=== PATIENT | female | born 2000 | race Caucasian/White ===

== ENCOUNTER 2019-02-02 03:55 | Inpatient (IN) ==
[2019-02-02] MEDS ORDERED: ONDANSETRON 4 MG/2 ML VIAL IV PRN ×2 (04:16→08:07)
[2019-02-02] MEDS ORDERED: LACTATED RINGERS 1,000 ML IV ONE (04:16)
[2019-02-02 04:36] LABS: Apearance,Urine CLOUDY (Clear); Bacteria,Urine Few /HPF (Few); Bilirubin,Urine Negative (Negative); Blood, Urine Large mg/dL (Negative); Glucose,Urine (UA) Negative (Negative); Hyaline Casts,Urine 1 /LPF (0-3); Ketones,Urine Negative (Negative); Mucus,Urine Few /LPF (Occasional); Nitrite,Urine Negative (Negative); Protein,Urine 30 MG/DL; RBC,Urine 207 /HPF (0-4); Squamous Epithelial Cell,Urine Moderate /HPF (0-10); Urine Color Yellow (Yellow); Urine Specific Gravity 1.011 (1.001-1.035); Urine Urobilinogen < 2.0 EU/DL (0.2-1.0); WBC,Urine 6 /HPF (0-6)
[2019-02-02] MEDS: BUTORPHANOL 2 MG/ML VIAL IV PRN ×2 (04:37→07:33)
[2019-02-02] MEDS ORDERED: LACTATED RINGERS 1,000 ML IV PRN (08:07)
[2019-02-02] MEDS ORDERED: hydrOXYzine HCL 25 MG/1 ML VIAL IM PRN (08:11)
[2019-02-02] MEDS ORDERED: ePHEDrine 50 MG/ML AMP IV PRN ×2 (08:11)
[2019-02-02] MEDS ORDERED: FAMOTIDINE 20 MG/2 ML VIAL IV ONE (08:11)
[2019-02-02] MEDS ORDERED: CITRIC ACID/SODIUM CITRATE 30 ML UDCUP PO ONE (08:11)
[2019-02-02] MEDS ORDERED: NALOXONE 0.4 MG/ML VIAL IV PRN (08:11)
[2019-02-02] MEDS ORDERED: PROMETHAZINE 25 MG/1 ML VIAL IM ONE (08:11)
[2019-02-02] MEDS ORDERED: ONDANSETRON 4 MG/2 ML VIAL IV ONE (08:11)
[2019-02-02] MEDS ORDERED: diphenhydrAMINE 50 MG/1 ML VIAL IV PRN ×2 (08:11)
[2019-02-02 08:29] LABS: Basophils % 0.3 % (0.0-0.8); Eosinophils % 0.2 % (0.00-10.9); Hematocrit 34.8 VOL% (35.7-47.0); Hemoglobin 11.6 GM/DL (12.0-16.0); Immature Granulocytes % 0.8 %; Immature Granulocytes Absolute 0.11 #; Mean Corpuscular HGB Conc 33.3 GM/DL (32-36); Mean Corpuscular Volume 90.6 FL (87-102); Mean Platelet Volume 12.4 FL (9.6-12.0); Monocytes % 7.2 % (1.7-12.7); Neutrophils % 77.5 % (38.7-73.9); Platelet Count 184 T/CUMM (130-400); Red Blood Count 3.84 MC/CUMM (3.8-5.5); Red Cell Distribution Width 13.2 % (9.3-17.3); White Blood Count 14.5 T/CUMM (4-12)
[2019-02-02] MEDS ORDERED: fentaNYL 2 MCG/ROPIV 0.2% EPID 100 ML EPIDURAL SCH (08:30)
[2019-02-02] MEDS ORDERED: OXYTOCIN/LR 20 UNIT/1,000 ML BAG IV SCH (08:30)
[2019-02-02] MEDS ORDERED: LACTATED RINGERS 1,000 ML IV SCH ×2 (08:30)
[2019-02-02 09:01] LABS: Albumin 2.6 G/DL (3.4-5.0); Bilirubin,Total 0.4 MG/DL (0.2-1.0); Calcium 8.8 MG/DL (8.5-10.1); Osmolality,Calculated 274.5 MOS/KG (273-304); Total Protein 6.5 G/DL (6.4-8.3)
[2019-02-02] MEDS ORDERED: miSOPROStoL 200 MCG TABLET ONE (09:46)
[2019-02-02] MEDS ORDERED: CARBOPROST TROMETHAMINE 250 MCG/ML AMP IM ONE (09:46)
[2019-02-02] MEDS ORDERED: TRANEXAMIC ACID 1,000 MG/10 ML VIAL ONE (09:46)
[2019-02-02] MEDS ORDERED: METHYLERGONOVINE 0.2 MG/1 ML AMP ONE (09:46)
[2019-02-02] MEDS: IBUPROFEN 800 MG TABLET PO PRN (23:02)
[2019-02-03 06:15] LABS: Basophils # 0.1 10*3/uL (0.0-0.2); Basophils % 0.4 % (0.0-0.8); Eosinophils # 0.2 10*3/uL (0.0-0.87); Eosinophils % 1.5 % (0.00-10.9); Hematocrit 30.7 VOL% (35.7-47.0); Hemoglobin 10.2 GM/DL (12.0-16.0); Immature Granulocytes % 0.5 %; Immature Granulocytes Absolute 0.07 #; Mean Corpuscular HGB Conc 33.2 GM/DL (32-36); Mean Corpuscular Volume 90.3 FL (87-102); Mean Platelet Volume 12.8 FL (9.6-12.0); Neutrophils % 66.6 % (38.7-73.9); Platelet Count 147 T/CUMM (130-400); Red Cell Distribution Width 13.2 % (9.3-17.3); White Blood Count 13.7 T/CUMM (4-12)
[2019-02-03] MEDS ORDERED: MAGNESIUM HYDROXIDE SUSP 30 ML UDCUP PO PRN (09:11)
[2019-02-03] MEDS: DOCUSATE SODIUM 100 MG CAPSULE PO SCH ×2 (09:41→21:58)
[2019-02-03] MEDS ORDERED: BENZOCAINE 20%/MENTHOL 0.5% SPRAY 56 GM CAN TOP PRN (11:42)
[2019-02-03] MEDS: IBUPROFEN 800 MG TABLET PO PRN ×2 (13:43→21:58)
[2019-02-04] MEDS: IBUPROFEN 800 MG TABLET PO PRN (07:29)
[2019-02-04 07:51] VITALS: BP 122/73
[2019-02-04] MEDS: DOCUSATE SODIUM 100 MG CAPSULE PO SCH (08:00)
[2019-02-04] MEDS ORDERED: NITROFURANTOIN MACRO/MONO 100 MG CAPSULE PO SCH (10:00)
== END 2019-02-04 13:45 | disposition home or self-care (01) | DRG 560 ==
LOC: N.LDOUT 03:55 → N.LD 03:57 → N.OB 14:25
PROVIDERS: ADMIT Specialist; ATTEND Specialist

== ENCOUNTER 2020-02-19 05:26 | Inpatient (IN) ==
[2020-02-19] MEDS ORDERED: ONDANSETRON 4 MG/2 ML VIAL IV PRN ×2 (05:35→11:26)
[2020-02-19] MEDS ORDERED: LACTATED RINGERS 1,000 ML IV SCH (06:00)
[2020-02-19 06:25] LABS: Basophils # 0.1 10*3/uL (0.0-0.2); Basophils % 0.7 % (0.0-0.8); Eosinophils # 0.2 10*3/uL (0.0-0.87); Eosinophils % 2.4 % (0.00-10.9); Hematocrit 31.3 VOL% (35.7-47.0); Immature Granulocytes % 0.6 %; Immature Granulocytes Absolute 0.05 #; Mean Corpuscular HGB Conc 31.9 GM/DL (32-36); Mean Corpuscular Volume 81.7 FL (87-102); Mean Platelet Volume 12.5 FL (9.6-12.0); Monocytes % 9.6 % (1.7-12.7); Neutrophils % 63.7 % (38.7-73.9); Platelet Count 163 T/CUMM (130-400); Red Blood Count 3.83 MC/CUMM (3.8-5.5); Red Cell Distribution Width 15.2 % (9.3-17.3); White Blood Count 8.8 T/CUMM (4-12)
[2020-02-19] MEDS ORDERED: OXYTOCIN/LR 20 UNIT/1,000 ML BAG IV SCH (06:30)
[2020-02-19 06:54] LABS: Albumin 2.7 G/DL (3.4-5.0); Bilirubin,Total 0.5 MG/DL (0.2-1.0); Calcium 8.9 MG/DL (8.5-10.1); Osmolality,Calculated 273.5 MOS/KG (273-304)
[2020-02-19] MEDS ORDERED: CITRIC ACID/SODIUM CITRATE 30 ML UDCUP PO ONE (08:05)
[2020-02-19] MEDS ORDERED: FAMOTIDINE 20 MG/2 ML VIAL IV ONE (08:05)
[2020-02-19] MEDS ORDERED: diphenhydrAMINE 50 MG/1 ML VIAL IV PRN ×2 (08:05)
[2020-02-19] MEDS ORDERED: ePHEDrine 50 MG/ML VIAL IV PRN (08:05)
[2020-02-19] MEDS ORDERED: hydrOXYzine HCL 25 MG/1 ML VIAL IM PRN (08:05)
[2020-02-19] MEDS ORDERED: PROMETHAZINE 25 MG/1 ML VIAL IM ONE (08:05)
[2020-02-19] MEDS ORDERED: NALOXONE 0.4 MG/ML VIAL IV PRN (08:05)
[2020-02-19] MEDS ORDERED: LACTATED RINGERS 1,000 ML IV ONE (08:05)
[2020-02-19] MEDS ORDERED: fentaNYL 2 MCG/ROPIV 0.2% EPID 100 ML EPIDURAL SCH (08:30)
[2020-02-19] MEDS ORDERED: MEPERIDINE 50 MG/1 ML VIAL IV ONE (08:41)
[2020-02-19] MEDS ORDERED: RHO(D) IMMUNE GLOBULIN 300 MCG SYRINGE IM ONE (11:26)
[2020-02-19] MEDS ORDERED: BISACODYL 10 MG SUPP RECTAL PRN (11:26)
[2020-02-19] MEDS ORDERED: ACETAMINOPHEN 325 MG TABLET PO PRN (11:26)
[2020-02-19] MEDS ORDERED: WITCH HAZEL PADS 100/JAR TOP PRN (11:26)
[2020-02-19] MEDS ORDERED: DIPH/TET/ACEL PERT BOOSTER VACCINE 0.5 ML VIAL IM ONE (11:26)
[2020-02-19] MEDS ORDERED: OXYTOCIN/LR 20 UNIT/1,000 ML BAG IV ONE (11:26)
[2020-02-19] MEDS ORDERED: BENZOCAINE 20%/MENTHOL 0.5% SPRAY 56 GM CAN TOP PRN (11:26)
[2020-02-19] MEDS ORDERED: MEASLES/MUMPS/RUBELLA VACCINE 0.5 ML VIAL SUBCUT ONE (11:26)
[2020-02-19] MEDS ORDERED: oxyCODONE/ACETAMINOPHEN 5-325 MG TABLET PO PRN (11:26)
[2020-02-19] MEDS ORDERED: LANOLIN 50% CREAM 0.3 OZ TUBE TOP PRN (11:26)
[2020-02-19] MEDS ORDERED: HYDROCORTISONE 2.5% RECTAL CREAM 30 GM TUBE TOP PRN (11:26)
[2020-02-19 11:48] LABS: Cord Arterial Blood HCO3 17.4 MMOL/L
[2020-02-19 11:51] LABS: Cord Venous Blood HCO3 20.2 MMOL/L; Cord Venous Blood PCO2 44.1 MMHG; Cord Venous Blood PO2 28.5
[2020-02-19] MEDS: IBUPROFEN 800 MG TABLET PO PRN ×2 (16:05→23:41)
[2020-02-19] MEDS: oxyCODONE/ACETAMINOPHEN 5-325 MG TABLET PO PRN ×2 (16:05→23:42)
[2020-02-19] MEDS: DOCUSATE SODIUM 100 MG CAPSULE PO SCH (21:57)
[2020-02-20 05:30] LABS: Basophils # 0.1 10*3/uL (0.0-0.2); Basophils % 0.5 % (0.0-0.8); Eosinophils # 0.3 10*3/uL (0.0-0.87); Hematocrit 29.9 VOL% (35.7-47.0); Hemoglobin 9.6 GM/DL (12.0-16.0); Immature Granulocytes % 0.5 %; Immature Granulocytes Absolute 0.05 #; Lymphocytes # 2.6 10*3/uL (1.4-4.0); Lymphocytes % 23.8 % (21.3-54.2); Mean Corpuscular HGB Conc 32.1 GM/DL (32-36); Mean Corpuscular Volume 82.4 FL (87-102); Neutrophils % 64.2 % (38.7-73.9); Platelet Count 155 T/CUMM (130-400); Red Blood Count 3.63 MC/CUMM (3.8-5.5); Red Cell Distribution Width 15.1 % (9.3-17.3); White Blood Count 11.1 T/CUMM (4-12)
[2020-02-20] MEDS: IBUPROFEN 800 MG TABLET PO PRN ×3 (06:19→23:47)
[2020-02-20] MEDS: oxyCODONE/ACETAMINOPHEN 5-325 MG TABLET PO PRN ×2 (06:19→23:47)
[2020-02-20] MEDS: DOCUSATE SODIUM 100 MG CAPSULE PO SCH ×2 (08:46→21:03)
[2020-02-21 07:40] VITALS: BP 116/57
[2020-02-21] MEDS: DOCUSATE SODIUM 100 MG CAPSULE PO SCH (08:31)
== END 2020-02-21 11:55 | disposition home or self-care (01) | DRG 560 ==
LOC: N.LDOUT 05:26 → N.LD 05:27 → N.OB 14:52
PROVIDERS: ADMIT Specialist; ATTEND Specialist

== ENCOUNTER 2021-11-27 21:06 | Inpatient (IN) ==
[2021-11-27] MEDS ORDERED: BUTORPHANOL 2 MG/ML VIAL IV PRN (22:18)
[2021-11-27] MEDS ORDERED: METHYLERGONOVINE 0.2 MG/1 ML AMP IM PRN (22:18)
[2021-11-27] MEDS ORDERED: ONDANSETRON 4 MG/2 ML VIAL IV PRN (22:18)
[2021-11-27] MEDS ORDERED: TRANEXAMIC ACID 1,000 MG in SODIUM CHLORIDE 0.9% 100 ML IV PRN (22:18)
[2021-11-27] MEDS ORDERED: MEPERIDINE 50 MG/1 ML VIAL IM PRN (22:18)
[2021-11-27] MEDS ORDERED: miSOPROStoL 200 MCG TABLET RECTAL PRN (22:18)
[2021-11-27] MEDS ORDERED: CARBOPROST TROMETHAMINE 250 MCG/ML AMP IM PRN (22:18)
[2021-11-27] MEDS ORDERED: LACTATED RINGERS 1,000 ML IV SCH (22:30)
[2021-11-27 22:42] LABS: Basophils % 0.2 % (0.0-0.8); Eosinophils # 0.3 10*3/uL (0.0-0.87); Eosinophils % 2.3 % (0.00-10.9); Hematocrit 28.6 VOL% (35.7-47.0); Hemoglobin 9.1 GM/DL (12.0-16.0); Immature Granulocytes % 1.3 %; Immature Granulocytes Absolute 0.17 #; Lymphocytes # 2.2 10*3/uL (1.4-4.0); Lymphocytes % 16.8 % (21.3-54.2); Mean Corpuscular HGB Conc 31.8 GM/DL (32-36); Mean Corpuscular Volume 82.7 FL (87-102); Mean Platelet Volume 11.9 FL (9.6-12.0); Monocytes # 0.9 10*3/uL (0.11-0.8); Monocytes % 6.8 % (1.7-12.7); NRBC # 0.02 10*3/uL; Neutrophils % 72.6 % (38.7-73.9); Platelet Count 180 T/CUMM (130-400); Red Blood Count 3.46 MC/CUMM (3.8-5.5); Red Cell Distribution Width 15.2 % (9.3-17.3); White Blood Count 12.9 T/CUMM (4-12)
[2021-11-27] MEDS ORDERED: OXYTOCIN/LR 20 UNIT/1,000 ML BAG IV ONE (22:45)
[2021-11-27 23:05] LABS: Albumin 2.6 G/DL (3.4-5.0); Bilirubin,Total 0.4 MG/DL (0.20-1.00); Calcium 9.2 MG/DL (8.5-10.1); Osmolality,Calculated 272.5 MOS/KG (273-304); Potassium 3.3 MMOL/L (3.5-5.1); Total Protein 6.7 G/DL (6.4-8.2)
[2021-11-27] MEDS ORDERED: AMPICILLIN INJ 2,000 MG in SODIUM CHLORIDE 0.9% 100 ML IV ONE (23:30)
[2021-11-28] MEDS: AMPICILLIN INJ 1,000 MG in SODIUM CHLORIDE 0.9% 100 ML IV SCH ×3 (03:10→11:07)
[2021-11-28] MEDS: MEPERIDINE 50 MG/1 ML VIAL IV PRN ×2 (06:35→09:14)
[2021-11-28] MEDS ORDERED: diphenhydrAMINE 50 MG/1 ML VIAL IV PRN ×2 (08:57)
[2021-11-28] MEDS ORDERED: FAMOTIDINE 20 MG/2 ML VIAL IV ONE (08:57)
[2021-11-28] MEDS ORDERED: ePHEDrine 50 MG/ML VIAL IV PRN (08:57)
[2021-11-28] MEDS ORDERED: hydrOXYzine HCL 25 MG/1 ML VIAL IM PRN (08:57)
[2021-11-28] MEDS ORDERED: PROMETHAZINE 25 MG/1 ML VIAL IM ONE (08:57)
[2021-11-28] MEDS ORDERED: LACTATED RINGERS 1,000 ML IV ONE (08:57)
[2021-11-28] MEDS ORDERED: CITRIC ACID/SODIUM CITRATE 30 ML UDCUP PO ONE (08:57)
[2021-11-28] MEDS ORDERED: NALOXONE 0.4 MG/ML VIAL IV PRN (08:57)
[2021-11-28] MEDS ORDERED: LACTATED RINGERS 1,000 ML IV SCH (09:00)
[2021-11-28] MEDS ORDERED: OXYTOCIN/LR 20 UNIT/1,000 ML BAG IV SCH (09:00)
[2021-11-28] MEDS ORDERED: fentaNYL 2 MCG/ROPIV 0.2% EPID 100 ML EPIDURAL SCH (09:00)
[2021-11-28] MEDS: THYROID 60 MG TABLET PO SCH (09:10)
[2021-11-28 11:29] LABS: Bacteria,Urine Occasional /HPF (Few); Mucus,Urine Occasional /LPF (Occasional); RBC,Urine <1 /HPF (0-4); Squamous Epithelial Cell,Urine Occasional /HPF (0-10)
[2021-11-28 11:30] LABS: Urine Appearance Clear (Clear); Urine Color Yellow (Yellow); Urine Specific Gravity >= 1.030 (1.001-1.035)
[2021-11-28 11:31] LABS: Bilirubin,Urine Small mg/dL (Negative); Blood, Urine Negative (Negative); Glucose,Urine (UA) Negative (Negative); Ketones,Urine Negative (Negative); Nitrite,Urine Negative (Negative); Protein,Urine Negative (Negative)
[2021-11-28] MEDS ORDERED: SODIUM CHLORIDE 0.9% 0 ML IV ONE (12:46)
[2021-11-28] MEDS ORDERED: miSOPROStoL 200 MCG TABLET ONE (12:46)
[2021-11-28] MEDS ORDERED: TRANEXAMIC ACID 1,000 MG/10 ML VIAL ONE (12:46)
[2021-11-28 13:52] LABS: Cord Venous Blood HCO3 23.6 MMOL/L; Cord Venous Blood PO2 30.4
[2021-11-28 13:53] LABS: Cord Arterial Blood HCO3 23.1 MMOL/L
[2021-11-28] MEDS ORDERED: DIPH/TET/ACEL PERT BOOSTER VACCINE 0.5 ML VIAL IM ONE (15:54)
[2021-11-28] MEDS ORDERED: IBUPROFEN 800 MG TABLET PO PRN (15:54)
[2021-11-28] MEDS ORDERED: MEASLES/MUMPS/RUBELLA VACCINE 0.5 ML VIAL SUBCUT ONE (15:54)
[2021-11-28] MEDS ORDERED: BISACODYL 10 MG SUPP RECTAL PRN (15:54)
[2021-11-28] MEDS ORDERED: RHO(D) IMMUNE GLOBULIN 300 MCG SYRINGE IM ONE (15:54)
[2021-11-28] MEDS ORDERED: oxyCODONE/ACETAMINOPHEN 5-325 MG TABLET PO PRN (15:54)
[2021-11-28] MEDS ORDERED: BENZOCAINE 20%/MENTHOL 0.5% SPRAY 56 GM CAN TOP PRN (15:54)
[2021-11-28] MEDS ORDERED: HYDROCORTISONE 2.5% RECTAL CREAM 30 GM TUBE TOP PRN (15:54)
[2021-11-28] MEDS ORDERED: ACETAMINOPHEN 325 MG TABLET PO PRN (15:54)
[2021-11-28] MEDS ORDERED: WITCH HAZEL PADS 100/JAR TOP PRN (15:54)
[2021-11-28] MEDS ORDERED: LANOLIN 50% CREAM 0.3 OZ TUBE TOP PRN (15:54)
[2021-11-28] MEDS ORDERED: OXYTOCIN/LR 20 UNIT/1,000 ML BAG IV ONE (15:54)
[2021-11-28] MEDS ORDERED: ONDANSETRON 4 MG/2 ML VIAL IV PRN (15:54)
[2021-11-28] MEDS: POTASSIUM CHLORIDE 20 MEQ TABLET PO PRN ×3 (17:42→22:06)
[2021-11-29 03:33] LABS: Basophils % 0.3 % (0.0-0.8); Eosinophils # 0.3 10*3/uL (0.0-0.87); Hematocrit 29.9 VOL% (35.7-47.0); Hemoglobin 9.3 GM/DL (12.0-16.0); Immature Granulocytes % 0.7 %; Immature Granulocytes Absolute 0.08 #; Lymphocytes # 2.2 10*3/uL (1.4-4.0); Lymphocytes % 19.9 % (21.3-54.2); Mean Corpuscular HGB Conc 31.1 GM/DL (32-36); Mean Corpuscular Volume 83.5 FL (87-102); Mean Platelet Volume 11.3 FL (9.6-12.0); Monocytes % 8.8 % (1.7-12.7); Neutrophils % 67.3 % (38.7-73.9); Platelet Count 170 T/CUMM (130-400); Red Blood Count 3.58 MC/CUMM (3.8-5.5); Red Cell Distribution Width 15.1 % (9.3-17.3); White Blood Count 11.2 T/CUMM (4-12)
[2021-11-29] MEDS: THYROID 60 MG TABLET PO SCH (07:21)
[2021-11-29] MEDS: oxyCODONE/ACETAMINOPHEN 5-325 MG TABLET PO PRN ×2 (07:23→23:57)
[2021-11-29] MEDS: MULTIVITAMIN (PRENATAL) TABLET PO SCH (09:42)
[2021-11-29] MEDS: DOCUSATE SODIUM 100 MG CAPSULE PO SCH ×2 (09:42→20:23)
[2021-11-30] MEDS: THYROID 60 MG TABLET PO SCH (07:24)
[2021-11-30] MEDS: DOCUSATE SODIUM 100 MG CAPSULE PO SCH (09:46)
[2021-11-30] MEDS: MULTIVITAMIN (PRENATAL) TABLET PO SCH (09:46)
[2021-11-30 12:11] VITALS: BP 114/74
== END 2021-11-30 13:15 | disposition home or self-care (01) | DRG 560 ==
LOC: N.LDOUT 21:06 → N.LD 21:56 → N.OB 11-29 11:11
PROVIDERS: ADMIT Specialist; ATTEND Specialist